=== PATIENT | male | born 1965 | race Caucasian/White ===

== ENCOUNTER → 2018-02-02 | Outpatient (CLI) | payer OTHER ==
[~2018-02-02] MED LIST: ALLO300T2 PO; ANT25 PO; ASPI325T39 PO; LOSA100T65 PO
--- NOTE | 2018-02-02 13:44 | DIAGNOSTIC IMAGING REPORT ---
RIGHT KNEE MRI HISTORY: Right knee pain. COMPARISON STUDY: Right knee radiograph 12/16/2017. TECHNIQUE: Multiplanar multisequence MRI of the right knee was performed according to standard department protocol without the use of contrast. FINDINGS: Menisci: The lateral meniscus is intact. There is a complex tear within the body of the medial meniscus with an oblique tear extending to the undersurface of the posterior horn of the medial meniscus. The body of the medial meniscus is partially extruded from the joint space. Ligaments: The anterior and posterior cruciate ligaments are intact. The medial and lateral collateral ligaments are normal in appearance. Mild edema surrounding the MCL is likely due to the meniscal injury. Extensor mechanism: The quadriceps tendon and patellar ligament are intact. Articular cartilage and bone: Approximately 50% cartilage thinning within the medial compartment of the knee. There is mild cartilage thinning within the lateral femoral condyle. There is greater than 50% cartilage thinning within the lateral patellar facet. Small tricompartmental marginal osteophytes. This is consistent with osteoarthritis. No fracture or dislocation within the knee. Normal marrow signal intensity within the visualized osseous structures. Joint effusion: Small. Soft tissues: Subcutaneous edema within the anterior knee. There is a small septated popliteal cyst which measures 5.7 x 2.6 x 1.1 cm. IMPRESSION: 1. Medial meniscal tears as described above. 2. Mild to moderate tricompartmental osteoarthritis. 3. Small knee effusion. 4. Small popliteal cyst. Electronically signed by: Duy Sanchez M.D. 02/02/2018 1:43 PM Dictated Date/Time: 02/02/2018 1:23 PM
== END | disposition home or self-care (01) ==
LOC: C.MRIBC 12:04
PROVIDERS: ATTEND Orthopaedic Surgery
DX: M25.561 Pain in right knee (principal); S83.241A Other tear of medial meniscus, current injury, right knee, initial encounter; J90 Pleural effusion, not elsewhere classified; M71.21 Synovial cyst of popliteal space [Baker], right knee

== ENCOUNTER → 2018-02-09 | Outpatient (CLI) | payer OTHER ==
[~2018-02-09] MED LIST changes: +AMLO-114 PO; +HYDR12.55 PO; +LOSA1TAB38 PO; +METO25TA3 PO; +TRAM-10 PO
[2018-02-09 16:52] LABS: POTASSIUM 3.4 mmol/L (3.5-5.1)
== END | disposition home or self-care (01) ==
LOC: C.CPL 13:51
PROVIDERS: ATTEND Orthopaedic Surgery
DX: S83.241A Other tear of medial meniscus, current injury, right knee, initial encounter (principal); X58.XXXA Exposure to other specified factors, initial encounter

== ENCOUNTER → 2018-02-16 | Day surgery (SDC) | payer OTHER ==
[2018-02-15 13:21] VITALS: Ht 188 cm; Wt 122.7 kg
[~2018-02-16] VITALS: Ht 188 cm; Wt 122.7 kg
[~2018-02-16] MED LIST changes: -ANT25 PO; +ATROPINE SULFATE 0.1 MG/ML 5ML SYR IV PRN; +BUPIVACAINE 0.5 % 5 MG/1 ML PF 10ML VIAL ONE; +CEFAZOLIN 1000MG IV PUSH 7.5 ML IV SCH; +CEFAZOLIN SOD 3000MG/22.5 ML IV PUSH IV ONE; +DEXAMETHASONE SOD INJ 4 MG/ML VIAL ONE; +EpHEDrine SULFATE INJ 50 MG/ML AMP IV PRN; +EpINEphrine INJ 1MG/ML AMP 1 MG/ML AMP ONE; +FENTANYL CITRATE INJ 50 MCG/1 ML 2 ML VIAL IV PRN; +FENTANYL CITRATE INJ 50 MCG/1 ML 2 ML VIAL ONE; +KETOROLAC TROMETHAMINE 30 MG/ML VIAL ONE; +LACTATED RINGER'S 1000ML 1,000 ML IV SCH; +LIDOCAINE HCL 2% 2 ML VIAL (20MG/ML) ONE; -LOSA100T65 PO; +MIDAZOLAM HCL 1 MG/ML 2ML VIAL ONE; +ONDANSETRON INJ 2 MG/ML 2 ML VIAL IV PRN; +ONDANSETRON INJ 2 MG/ML 2 ML VIAL ONE; +OXYCODONE/ACETAMINOPHEN 5-325 TAB PO PRN; +PATIENT'S HEIGHT AND/OR WEIGHT NEEDED SCH; +PROPOFOL IV EMULSION 10 MG/ML 20 ML VIAL IV ONE; +ROPIVACAINE 0.5% 5 MG/ML 30 ML VIAL ONE; +SODIUM CHLORIDE 0.9% 1000ML 1,000 ML IV SCH
--- NOTE | 2018-02-16 06:37 | History & Physical Bridge - SC ---
H&P Re-Evaluation Bridge Note: I have examined the patient, reviewed the History & Physical and in the interval since the performance of the History & Physical I have noted the following changes of clinical significance: No changes noted
--- NOTE | 2018-02-16 07:19 | [facility] Post Operative Brief Note ---
Immediate Operative Summary Operative Date Feb 16, 2018. Pre-Operative Diagnosis Right knee medial meniscus tear Post-Operative Diagnosis Same as preop, djd mfc grade 2-3 Procedure(s) Performed Right Knee Arthroscopy, Partial Medial Meniscectomy Surgeon Dr. Villalta Specification Consultant Surgeon(s) Home [employer]ands PA-C Estimated Blood Loss 0 mL Findings Consistent with Post-Op Diagnosis Specimens None Anesthesia Type General Complication(s) none Disposition Disposition: Recovery Room / PACU
--- NOTE | 2018-02-16 07:29 | Discharge Instructions-SurgCtr ---
Discharge Instructions Date of Service Feb 16, 2018. Visit Reason for Visit: Right Knee Medial Meniscus Tear Discharge Discharge Diagnosis / Problem: SAME ABOVE Discharge Goals Goal(s): Decrease discomfort, Improve function Activity Recommendations Activity Limitations: as noted below Lifting Limitations: gradually increase as tolerated Exercise/Sports Limitations: until after follow-up appointment Shower/Bathe: tomorrow Weightbearing Status: Right weightbearing (as tolerated) Anesthesia . Post Anesthesia Instructions: If you have had General Anesthesia or IV Sedation: * Do not drive today. * Resume driving when surgeon permits. * Do not make important decisions or sign legal documents today. * Call surgeon for: 1. Temperature elevations greater than 101 degrees F. 2. Uncontrollable pain. 3. Excessive bleeding. 4. Persistent nausea and vomiting. 5. Medication intolerance (nausea, vomiting or rash). * For nausea and vomiting use only clear liquids such as: tea, soda, bouillon until nausea subsides, then gradually increase diet as tolerated. * If you have any concerns or questions, call your surgeon's office. If physician is unavailable and it is an emergency, call 911 or go to the nearest emergency room. . Instructions / Follow-Up Instructions / Follow-Up MEDICATIONS: * Resume previous medications unless instructed otherwise by your surgeon. * Always take pain medication on a full stomach or with food to avoid upset stomach. * Do not drink alcohol or drive while taking narcotics. * Ibuprofen or Tylenol may be taken if narcotic not needed. SPECIAL CARE INSTRUCTIONS: __ None _X_ Keep extremity elevated and iced x 48 hours; apply ice 20-30 minutes 8-10 times/day. May remove at night. __ Crutches __ May discard when able __ Brace/Post-op shoe __ 24 hrs/day __ Remove at night _X_ Dressing __ Maintain until seen in office, may shower with plastic over site _X_ Remove dressings in 24-48 hours and then may shower _X_ Cover incisions with band-aids after showering __ Do not remove steri-strips Call physician if chills or temperature rises above 102 degrees or pain unrelieved by prescribed pain medications. Office [phone] Diet Recommendations Home Diet: resume previous diet Procedures Procedures Performed: Right Knee Arthroscopy, Partial Medial Meniscectomy Pending Studies Studies pending at discharge: no Medical Emergencies . Who to Call and When: Medical Emergencies: If at any time you feel your situation is an emergency, please call 911 immediately. . Non-Emergent Contact Non-Emergency issues call your: Primary Care Provider . . "Provider Documentation" section prepared by [employer]. .
--- NOTE | 2018-02-16 07:41 | OPERATIVE REPORT ---
DATE OF OPERATION: 02/16/2018 PREOPERATIVE DIAGNOSIS: Medial meniscus tear, right knee. POSTOPERATIVE DIAGNOSES: 1. Medial meniscus, right knee. 2. Grade 2-3 articular changes, medial femoral condyle. 3. Synovitis, patellofemoral joint, intercondylar notch. PROCEDURES: 1. Right knee arthroscopy, partial medial meniscectomy. 2. Chondroplasty, medial femoral condyle. 3. Synovectomy. SURGEON: Zachary Villalta MD DIRECTOR OF CONTRACTS: Home Sands PA-C. ANESTHESIOLOGIST: Dr. Echeverria. ANESTHESIA: General LMA. DRAINS: None. COMPLICATIONS: None. CONDITION: The patient tolerated the procedure well and returned to recovery in apparent satisfactory condition. INDICATIONS FOR SURGERY: Lowell is a 52-year-old male who presents with right knee pain complaints under conservative care. After failing that, we went over treatment options and he elected to go ahead and proceed with surgery. The procedure, expected outcome, side effects were all explained in detail. DESCRIPTION OF THE PROCEDURE: The patient was taken to the operating room table at which time he was placed supine by anesthesia department. Examination of the knee was performed. Ligamentous norris, it was stable. We went ahead and prepped and draped in usual sterile fashion, began arthroscopic examination with anteromedial and anterolateral portals. He had a very tight medial compartment. We found a degenerative type tear of the posterior horn of the medial meniscus. We came in with upbiting scissors, full range resector and trimmed it back to a stable rim. The articular changes were also noted on the femoral condyle, mostly on the extension surface, probably grade 2-3 articular area of damage, probably size of a dime. This was debrided and smoothed out. There was a lot of synovitis in the intercondylar notch, this was shaved out. Lateral compartment was relatively in good shape. No abnormalities noted there. We found a lot of synovitis in the patellofemoral joint. This was also trimmed out and shaved. The articular surfaces of the trochlear groove with the femur underneath the surface of patella looked good. Knee then was copiously irrigated. All cannulas were removed. Portals were closed with 4-0 nylon sutures. 20 mL of Marcaine, 10 mg of Toradol, and 1 mL epinephrine was placed in the knee joint. Placed sterile dressing of Xeroform, 4 x 4, ABD, Sof-Rol, and Corey bandage and returned to recovery in apparent satisfactory condition. SURGICAL FINDINGS: Include: 1. A posterior horn medial meniscus tear. 2. Grade 2-3 articular changes, medial femoral condyle. 3. Synovitis, intercondylar notch and patellofemoral joint. I attest to the content of the Intraoperative Record and any orders documented therein. Any exception s are noted below.
[2018-02-16 08:04] VITALS: TEMP 36.6
[2018-02-16 08:31] VITALS: BP 161/99; PULSE 73; O2SAT 97
--- NOTE | 2018-02-16 08:40 | Anesthesia Progress Nt - [facility] ---
Anesthesia Post Op Note Date & Time Feb 16, 2018 at 08:39 Vital Signs Pain Intensity: 0 Vital Signs Past 12 Hours Date Time Temp Pulse Resp B/P (MAP) Pulse Ox O2 Delivery O2 Flow Rate FiO2 02/16/18 08:31 73 16 161/99 (119) 97 Room Air 02/16/18 08:04 36.6 75 16 162/88 (112) 97 Room Air 02/16/18 07:59 36.4 02/16/18 07:56 157/98 (116) 02/16/18 07:55 76 19 96 02/16/18 07:55 74 19 02/16/18 07:51 156/101 (124) 02/16/18 07:50 66 17 97 02/16/18 07:50 68 17 02/16/18 07:46 157/93 (123) 02/16/18 07:45 Room Air 02/16/18 07:45 72 24 97 02/16/18 07:45 72 24 02/16/18 07:41 152/98 (112) 02/16/18 07:40 69 20 02/16/18 07:40 69 20 100 02/16/18 07:36 151/98 (120) 02/16/18 07:35 70 19 02/16/18 07:35 70 19 100 02/16/18 07:32 149/96 (116) 02/16/18 07:25 36.0 77 16 178/97 98 Diffusion Mask 5 02/16/18 06:26 36.7 79 16 159/95 (116) 98 Room Air Notes Mental Status: alert / awake / arousable, participated in evaluation Pt Amnestic to Procedure: Yes Nausea / Vomiting: adequately controlled Pain: adequately controlled Airway Patency, RR, SpO2: stable & adequate BP & HR: stable & adequate Hydration State: stable & adequate Anesthetic Complications: no major complications apparent Patient with h/o HTN s/p knee arthroscopy with Dr. Villalta. The patient did not take his lisinopril today. He was instructed to take it as soon as he goes home. He understands and agrees. He feels well on discharge with no complaints.
== END | disposition home or self-care (01) ==
LOC: X.SURG 06:04
PROVIDERS: ATTEND Orthopaedic Surgery
DX: S83.241A Other tear of medial meniscus, current injury, right knee, initial encounter (principal); M65.861 Other synovitis and tenosynovitis, right lower leg; X58.XXXA Exposure to other specified factors, initial encounter; I10 Essential (primary) hypertension; Z98.890 Other specified postprocedural states; Z79.899 Other long term (current) drug therapy; Z79.82 Long term (current) use of aspirin; E66.9 Obesity, unspecified; Z68.35 Body mass index [BMI] 35.0-35.9, adult